=== PATIENT | female | born 1980 | race Two or more races ===

== ENCOUNTER 2017-07-25 13:48 | Outpatient (CLI) | payer OTHER | END 2017-07-25 14:58 | disposition home or self-care (01) | LOC: TOM 13:48 | DX: Z01.810 Encounter for preprocedural cardiovascular examination (principal); R10.9 Unspecified abdominal pain; K43.2 Incisional hernia without obstruction or gangrene ==

== ENCOUNTER 2017-07-25 13:50 | Outpatient (CLI) | payer OTHER | END 2017-07-25 14:58 | disposition home or self-care (01) | LOC: RAD 13:50 | DX: Z01.810 Encounter for preprocedural cardiovascular examination (principal); K43.2 Incisional hernia without obstruction or gangrene; R10.9 Unspecified abdominal pain ==